=== PATIENT | female | born 1945 | race Caucasian/White ===

== ENCOUNTER 2019-01-04 13:41 | Inpatient (IN) | payer OTHER ==
[~2019-01-04] VITALS: Ht 165.1 cm; Wt 103.9 kg
[2019-01-04 14:45] LABS: BASOPHILS ABSOLUTE AUTO 0.02 K/mm3 (0.00-0.23); BASOPHILS PERCENT AUTO 0 % (0-2); EOSINOPHILS ABSOLUTE AUTO 0.08 K/mm3 (0.00-0.68); EOSINOPHILS PERCENT AUTO 1 % (0-6); Hematocrit 43.4 % (33.0-51.0); Hemoglobin 14.4 g/dL (11.5-16.0); IMMATURE GRAN ABSOLUTE AUTO 0.01 K/mm3 (0.00-0.10); IMMATURE GRAN PERCENT AUTO 0 % (0-1); LYMPHOCYTES ABSOLUTE AUTO 2.36 K/mm3 (0.84-5.20); LYMPHOCYTES PERCENT AUTO 33 % (21-46); MONOCYTES ABSOLUTE AUTO 0.49 K/mm3 (0.16-1.47); MONOCYTES PERCENT AUTO 7 % (4-13); Mean Corpuscular HGB 31.3 pg (26.0-34.0); Mean Corpuscular HGB Conc 33.2 g/dL (31.5-36.5); Mean Corpuscular Volume 94 fL (80-100); Mean Platelet Volume 10.8 fL (9.1-12.4); NEUTROPHILS ABSOLUTE AUTO 4.16 K/mm3 (1.96-9.15); NEUTROPHILS PERCENT AUTO 59 % (41-73); Platelet Count 225 K/mm3 (150-400); RDW Coefficient Variation 12.6 % (11.7-14.2); RDW Standard Deviation 43.4 fL (35.1-46.3); White Blood Cell Count 7.12 K/mm3 (4.00-11.30)
[2019-01-04 15:10] LABS: Alanine Aminotransfer (ALT/SGP 37 U/L (12-78); Albumin, Blood 3.8 g/dL (3.4-5.0); Alk Phos 84 U/L (50-136); Anion Gap 8 mmol/L (6-16); Aspartate Aminotrans (AST/SGOT 24 U/L (12-37); Bilirubin, Total 0.4 mg/dL (0.1-1.0); Blood Urea Nitrogen 14 mg/dL (8-24); Bun/Creatinine Ratio 16.1 (12.0-20.0); CO2, Blood 26 mmol/L (21-32); Calcium, Blood 8.9 mg/dL (8.5-10.1); Chloride, Blood 107 mmol/L (98-108); Creatinine, Blood 0.87 mg/dL (0.40-1.00); Globulin, Blood 3.9 g/dL (2.2-4.0); Glomerular Filtration Rate >60 (60-); Glucose, Blood 110 mg/dL (70-99); Potassium, Blood 3.5 mmol/L (3.5-5.5); Sodium, Blood 141 mmol/L (136-145); Total Protein, Blood 7.7 g/dL (6.4-8.2); Troponin I 0.085 ng/mL (0.000-0.040)
--- NOTE | 2019-01-04 19:07 | NUR ---
PT ADMITTED AT 1730. PT PLEASANT TALKATIAVE. INDEPENDANT IN ROOM. AMBULATED TO/FROM BATHROOM WELL. NO ASSISTANCE NEEDED. IN ROOM. PT DENIES PAIN AT THIS TIME. ADMIT DONE. PT ADVISED ABOUT STRESS TESTS TOMORROW . NO CAFFEINE PRODUCTS. NPO MIDNITE. DINNER ORDERED. NO OTHER CONCERNS AT THIS TIME. BED IN LOW POSITION, CALL LITE IN REACH, CALLS APPROP
--- NOTE | 2019-01-05 05:53 | NUR ---
SHIFT SUMMARY PT A&O X4. INDEPENDENT IN ROOM. VSS. PT REPORTED DULL, 1/10 CP AT BEGINNING OF SHIFT. PT DENYING PAIN T/O REMAINDER OF SHIFT. PT NPO SINCE MIDNIGHT FOR POTENTIAL STRESS TEST IN AM. WILL CONTINUE TO MONITOR AND PROVIDE CARE UNTIL REPORT OFF TO DAY SHIFT RN.
--- NOTE | 2019-01-05 07:30 | NUR ---
PT PLEASANT CHEERFUL. DENIES PAIN, PRESSURE OR TIGHTNESS IN CHEST. PENDING STRESS TEST THIS AM. NPO SINCE MIDNITE. H/R REG, NO MURMER NOTED. PER TELE: NSR AT 72, LUNGS CLEAR, RESP EASY, UNLABORED. ON R.A. BT X4 LAST BM YEST AM. VOIDS INDEPENDANT TO BATHROOM. BED IN LOW POSITION, CALL LITE IN REACH, CALLS APROP
--- NOTE | 2019-01-05 17:02 | NUR ---
PT QUITE PLEASANT TODAY. DENIES PAIN. HAS HAD FAMILY IN ROOM MUCH OF DAY. PART ONE OF STRESS TESST DONE TODAY. EXPECTING PART TWO TOMORROW 8830. HOLD TRAY FOR BREAKFAST AND GIVE AFTER TEST. NPO MIDNITE. NO OTEHR CONCERNS AT THIS TIME. BED IN LOW POSITION,C ALL LITE IN REACH, INDEPENDANT IN ROOM.
--- NOTE | 2019-01-06 07:35 | NUR ---
SHIFT SUMMARY PT A&O X4 T/O SHIFT. PT DENIES PAIN, SOB, CP AND NAUSEA T/O SHIFT. RA, LS CLEAR BILAT; VSS; NO ACUTE CHANGES. TELEMETRY IN PLACE; SR WITH PAC'S PER SENIOR ASSISTANT MANAGER. NPO POST MIDNIGHT; NO CAFFINE. CALL LIGHT IN REACH; PT DEMONSTRATES USE. REPORT GIVEN TO DAY SHIFT RN.
[2019-01-06 14:10] LABS: CHOL/HDL RATIO 5.3; Cholesterol 201 mg/dL (50-200); HDL Cholesterol 38 mg/dL (>39); LDL/HDL RATIO 3.1; Low Density Lipoprotein Chol 116 mg/dL (0-110); Triglycerides 233 mg/dL (30-160); Very Low Density Lipoprot Chol 46 mg/dL (6-32)
--- NOTE | 2019-01-06 17:59 | NUR ---
PT HAS DECIDED TO REMAIN IN HOSPITAL AND HAVE AN ANGIOGRAM TOMORROW. DR. HERNANDEZ AWARE. PAGE OUT TO DR. GEE.
--- NOTE | 2019-01-06 18:00 | NUR ---
SHIFT SUMMARY COMPLETED STRESS TEST THIS A.M.; DENIES ANY CP, SOB, NAUSEA OR ANY OTHER SYMPTOMS OR PAIN. FAMILY AT BEDSIDE THROUGHOUT DAY. ECHO AND ADDITIONAL LABS COMPLETED ORDERED BY DR. GEE. PLAN IS TO HAVE AN ANGIOGRAM IN A.M.; OX4 INDEPENDENT IN ROOM.
--- NOTE | 2019-01-06 18:11 | NUR ---
MED REC PLACED ON CHART IN CABINET.
--- NOTE | 2019-01-06 19:15 | NUR ---
OPENING NOTE RECEIVED REPORT FROM VAL BUNCH AND ASSUMED CARE OF PT. PT IS SITTING UP IN BED, VISITING WITH GUESTS AT THE BEDSIDE. DENIES PAIN/CP/SOB AT THIS TIME. STATES "I'M FEELING GOOD TODAY, READY TO GET MY TEST DONE IN THE MORNING". PLAN FOR ANGIO IN THE AM. WILL CONTINUE TO MONITOR AND CONTINUE PLAN OF CARE. VSS, SEE ASSESSMENT FOR DETAILS. CALL LIGHT AND BELIONGINGS IN REACH.
--- NOTE | 2019-01-07 06:17 | NUR ---
SHIFT SUMMARY: PATIENT NPO SINCE 0000, INDEPENDENT IN THE ROOM, USING CALL LIGHT APPROPRIATLY. VSS, NO ISSUES NOTED, BED LOW AND LOCKED, CALL LIGHT WITHIN REACH.
--- NOTE | 2019-01-07 09:38 | NUR ---
PT TAKEN TO [facility] FOR [facility]GIO[facility]. WILL AWAIT RETURN
--- NOTE | 2019-01-07 11:20 | NUR ---
update: Pt returned to room PCU 13 post angiogram. R radial site with TR band intact. Denies numbness or tingling. Cap refil < 3sec, no bleeding, oozing, swelling or hematoma noted. Wrist imobilizer in place. Pt states that she is having 2-3/10 chest pressure/discomfort, that it feels like something is stuck in her throat. Will monitor and inform physician. BP slightly elevated, see VS flow sheet. Pt denies other needs. Will monitor.
--- NOTE | 2019-01-07 12:01 | NUR ---
UPDATE: Pt started to have 8/10 chest pressure the went up "into my throat". Appeared to have some ST changes on Monitor. Physician notified and came to see pt. New orders obtained and followed through. Pt has nausea with dry heaves. EKG done, nitro, labatolol, zofran and versed given. Pt states that pressure has subsided, down to 4/10. Will continue to treat and monitor per orders and needs.
--- NOTE | 2019-01-07 12:20 | NUR ---
PT STATES HER CHEST PAIN IS RELIEVED. BP HAS IMPROVED SEE VS. WILL CONTINUE TO MONITOR CLOSELY.
--- NOTE | 2019-01-07 14:40 | NUR ---
BP INCREASED SEE VS. PT COMPLAINS OF 5/10 CHEST PAIN. SL NITRO GIVEN. BP IMPROVED. 2CC OF AIR REMOVED. SITE STARTS BLEEDING AND 2 CC OF AIR INSERTED BACK INTO TR BAND. BLEEDING STOPPED WITH NO SIGNS OF HEMATOMA FORMATION OR BRUISING. WILL CONTINUE TO MONITOR CLOSELY.
--- NOTE | 2019-01-07 14:50 | NUR ---
BP INCREASING. DR. HERMOSILLO CALLED WITH NEW ORDERS FOR ORAL LISINOPRIL. MEDICATION ADMINISTERED. BP 197/100. PT COMPLAINS OF CP. SL NITRO GIVEN. PT STATES CP IS NOW 3/10. BP HAS IMPROVED. WILL CONTINUE TO MONITOR CLOSELY.
--- NOTE | 2019-01-07 15:41 | NUR ---
UPDATE: Pt resting in bed. States that she is still having 5/10 pressure in her chest. Medicated with 1 tab SL nitro. This brought pain down to a 2/10. 2cc air removed from R Radial TR band. No bleeding, swelling, bruising or hematoma noted. Will continue to monitor.
--- NOTE | 2019-01-07 16:00 | NUR ---
ATTEMPTED TO REMOVE 2CC OF AIR FROM TR BAND. ACCESS SITE STARTED TO BLEED AND 2CC OF AIR INSERTED BACK INTO TR BAND. BLEEDING HAS STOPPED. WILL ATTEMPT TO REMOVE AIR IN APPROXIMATELY 30 MIN.
--- NOTE | 2019-01-07 17:00 | NUR ---
BP HAS INCREASED AGIAN. DR. GEE AND NOTIFIED ABOUT BP. NEW ORDERS PROVIDED. RIGHT RADIAL SITE FREE FROM BRUISING OR HEMATOMA. SMALL AMOUNT OF BLOOD PRESENT AT ACCESS SITE IS UNCHAGED. WILL CONTINUE TO MONITOR.
--- NOTE | 2019-01-07 18:15 | NUR ---
HYDRALAZINE GIVEN AND BP HAS IMPROVED. PT DENIES ANY CP AT THIS TIME. AT THIS TIME 11CC OF AIR HAVE BEEN REMOVED FROM TR BAND AND SITE IS UNCHANGED. NO SIGNS OF HEMATOMA, BRUISING OR BLEEDING. SMALL AMOUNT OF BLOOD IS UNCHAGED.
--- NOTE | 2019-01-07 18:35 | NUR ---
TOTAL OF 13CC OF AIR REMOVED FROM TR BAND. NO BLEEDING, HEMATOMA, OR BRUISING NOTED. PT DENIES CP. HR SR WITH A RATE IN THE 60'S AT THIS TIME. PT EDUCATED ABOUT ARM RESTRICTIONS. WILL REMOVE TR BAND IN APPROXIMATELY ONE HOUR. WILL CONTINUE TO MONITOR AND REPORT TO [employer] WRAPPER TENDER AUTOMATIC RN.
--- NOTE | 2019-01-07 22:07 | NUR ---
Assumed care of pt at approx 1930. At time of shift change, pt VSS with some noted hypertension, metoprolol given per orders. pt denies chest pain or chest pressure at this time. TR band completed deflated by JULIO C Rutherford at 1835, no s/sx of bleeding or hematoma. Pt denies any further needs at this time, states "I just want to sleep". pt denies nausea. No further events on tele, pt remains NSR. Pt alert and oriented. Pt independant, instructed to call before getting up d/t blood pressure shifts noted on day shift. Pt states understanding and has been calling appropriately. Call light in reach and bed in lowest, locked position. Pt currently sleeping. Pt is able to reposition self to comfort and makes needs known. See shift assessment for detailed assessment. Will continue to monitor and update as appropriate.
[2019-01-08 04:55] LABS: BASOPHILS ABSOLUTE AUTO 0.02 K/mm3 (0.00-0.23); BASOPHILS PERCENT AUTO 0 % (0-2); EOSINOPHILS ABSOLUTE AUTO 0.06 K/mm3 (0.00-0.68); EOSINOPHILS PERCENT AUTO 1 % (0-6); Hematocrit 43.5 % (33.0-51.0); Hemoglobin 14.2 g/dL (11.5-16.0); IMMATURE GRAN ABSOLUTE AUTO 0.01 K/mm3 (0.00-0.10); IMMATURE GRAN PERCENT AUTO 0 % (0-1); LYMPHOCYTES ABSOLUTE AUTO 2.21 K/mm3 (0.84-5.20); LYMPHOCYTES PERCENT AUTO 24 % (21-46); MONOCYTES ABSOLUTE AUTO 0.71 K/mm3 (0.16-1.47); MONOCYTES PERCENT AUTO 8 % (4-13); Mean Corpuscular HGB 31.1 pg (26.0-34.0); Mean Corpuscular HGB Conc 32.6 g/dL (31.5-36.5); Mean Corpuscular Volume 95 fL (80-100); Mean Platelet Volume 10.6 fL (9.1-12.4); NEUTROPHILS ABSOLUTE AUTO 6.27 K/mm3 (1.96-9.15); NEUTROPHILS PERCENT AUTO 68 % (41-73); Platelet Count 248 K/mm3 (150-400); RDW Coefficient Variation 13.1 % (11.7-14.2); RDW Standard Deviation 45.7 fL (35.1-46.3); Red Blood Cell Count 4.57 M/mm3 (3.80-5.20); White Blood Cell Count 9.28 K/mm3 (4.00-11.30)
--- NOTE | 2019-01-08 05:12 | NUR ---
Shift Summary No acute changes this shift. Pt initially hypertensive at shift change, recieved metorprolol per scheduled medication from [facility] and BP responded with normotensive readings at both 0000 and 0400. Pt without complaints this shift, calls appropriately, is independant in room, walks with steady gait. Pt remains A&Ox4. VSS. EKG performed at 0500 showing sinus bradycardia. no events on tele this shift. Will continue to monitor and update as needed.
[2019-01-08 05:35] LABS: Anion Gap 7 mmol/L (6-16); Blood Urea Nitrogen 24 mg/dL (8-24); Bun/Creatinine Ratio 26.2 (12.0-20.0); CO2, Blood 26 mmol/L (21-32); Calcium, Blood 9.1 mg/dL (8.5-10.1); Chloride, Blood 107 mmol/L (98-108); Creatinine, Blood 0.92 mg/dL (0.40-1.00); Glomerular Filtration Rate >60 (60-); Glucose, Blood 115 mg/dL (70-99); Potassium, Blood 4.1 mmol/L (3.5-5.5); Sodium, Blood 140 mmol/L (136-145)
--- NOTE | 2019-01-08 09:30 | NUR ---
PT AMBULATED IN HALLWAY THIS AM WITH RN AND DENIED CHEST PAIN OR SHORTNESS OF BREATH AFTER AMBULATION. RIGHT WRIST SOFT, NO BLEED OR HEMATOMA, OPSITE DRSG CDI. ARM BOARD IN PLACE.
[2019-01-08] MEDS ORDERED: ACET325 PO (13:22)
[2019-01-08] MEDS ORDERED: ASPI81CH PO (13:26)
[2019-01-08] MEDS ORDERED: ROSU10TA PO (13:28)
[2019-01-08] MEDS ORDERED: CLOP75 PO (13:31)
[2019-01-08] MEDS ORDERED: FAMO20 PO (13:32)
[2019-01-08] MEDS ORDERED: Hydrochloroth12.5 MG PO (13:36)
[2019-01-08] MEDS ORDERED: Prinivil10 MG PO (13:50)
[2019-01-08] MEDS ORDERED: METO50ER PO (13:51)
[2019-01-08] MEDS ORDERED: Nitrostat0.4 MG SL (13:53)
--- NOTE | 2019-01-08 16:00 | NUR ---
DISCHARGE NOTE PT STABLE FOR DISCHARGE. IV REMOVED. DISCHARGE MEDICATIONS, DISCHARGE INSTRUCTIONS, DISCHARGE MEDICATION EDUCATION, [employer] CONTRACT, AND RADIAL ACCESS INSTRUCTIONS REVIEWED WITH PT AND . PT AND VERBALIZE UNDERSTANDING AND DENY QUESTIONS. PT DISCHARGED VIA WHEELCHAIR TO WAITING CAR WITH INSTRUCTIONS AND BELONGINGS.
== END 2019-01-08 16:06 | disposition home or self-care (01) | DRG 247 ==
LOC: ER 13:41 → PCU 13:42
PROVIDERS: Internal Medicine Cardiovascular Disease; Physician Assistant; ADMIT Internal Medicine
PROC: 4A023N7 Measurement of Cardiac Sampling and Pressure, Left Heart, Percutaneous Approach (ICD-10-PCS; principal; 2019-01-07)
PROC: 027135Z Dilation of Coronary Artery, Two Arteries with Two Drug-eluting Intraluminal Devices, Percutaneous Approach (ICD-10-PCS; 2019-01-07)
PROC: B211YZZ Fluoroscopy of Multiple Coronary Arteries using Other Contrast (ICD-10-PCS; 2019-01-07)
DX: I21.4 Non-ST elevation (NSTEMI) myocardial infarction (principal); I16.0 Hypertensive urgency; I10 Essential (primary) hypertension; I25.119 Atherosclerotic heart disease of native coronary artery with unspecified angina pectoris; E78.5 Hyperlipidemia, unspecified; Z68.38 Body mass index [BMI] 38.0-38.9, adult; I25.2 Old myocardial infarction; Z87.891 Personal history of nicotine dependence
CPT/HCPCS: 36415; 71046; 78452; 80048; 80053; 80061; 84443; 84484; 85025; 85347; 92920; 92921; 92978; 92979; 93005; 93010; 93017; 93306; 93458; 96372; 96374; 99152; 99153; 99285-25; A9500; C1725; C1753; C1769; C1874; C1887; C1894; C9600; C9601; G0378; J0360; J0706; J1644; J1650; J2250; J2405; J2785; J3010; J7030; Q9967

== ENCOUNTER 2020-09-26 15:16 | Emergency (ER) | payer OTHER ==
[~2020-09-26] VITALS: Ht 165.1 cm; Wt 87.1 kg
[~2020-09-26 15:16] MED LIST: ACET325 PO; ASPI81CH PO; CLOP75 PO; FAMO20 PO; Hydrochloroth12.5 MG PO; METO50ER PO; Nitrostat0.4 MG SL; Prinivil10 MG PO; ROSU10TA PO
[2020-09-26] MEDS ORDERED: AMLODIPINE BESYL5 MG PO (15:32)
[2020-09-26 15:58] LABS: BASOPHILS ABSOLUTE AUTO 0.02 K/mm3 (0.00-0.23); BASOPHILS PERCENT AUTO 0 % (0-2); EOSINOPHILS PERCENT AUTO 1 % (0-6); Hematocrit 40.9 % (33.0-51.0); Hemoglobin 13.2 g/dL (11.5-16.0); IMMATURE GRAN ABSOLUTE AUTO 0.01 K/mm3 (0.00-0.10); IMMATURE GRAN PERCENT AUTO 0 % (0-1); LYMPHOCYTES ABSOLUTE AUTO 2.09 K/mm3 (0.84-5.20); LYMPHOCYTES PERCENT AUTO 29 % (21-46); MONOCYTES ABSOLUTE AUTO 0.48 K/mm3 (0.16-1.47); MONOCYTES PERCENT AUTO 7 % (4-13); Mean Corpuscular HGB 30.4 pg (26.0-34.0); Mean Corpuscular HGB Conc 32.3 g/dL (31.5-36.5); Mean Corpuscular Volume 94 fL (80-100); Mean Platelet Volume 10.9 fL (9.1-12.4); NEUTROPHILS ABSOLUTE AUTO 4.42 K/mm3 (1.96-9.15); NEUTROPHILS PERCENT AUTO 62 % (41-73); Platelet Count 208 K/mm3 (150-400); Red Blood Cell Count 4.34 M/mm3 (3.80-5.20); White Blood Cell Count 7.12 K/mm3 (4.00-11.30)
[2020-09-26 16:22] LABS: Alanine Aminotransfer (ALT/SGP 25 U/L (12-78); Albumin, Blood 3.9 g/dL (3.4-5.0); Alk Phos 84 U/L (50-136); Anion Gap 6 mmol/L (6-16); Aspartate Aminotrans (AST/SGOT 39 U/L (12-37); Blood Urea Nitrogen 26 mg/dL (8-24); CO2, Blood 27 mmol/L (21-32); Calcium, Blood 9.3 mg/dL (8.5-10.1); Chloride, Blood 107 mmol/L (98-108); Creatinine, Blood 0.96 mg/dL (0.40-1.00); Globulin, Blood 3.8 g/dL (2.2-4.0); Glomerular Filtration Rate >60 (60-); Glucose, Blood 104 mg/dL (70-99); Potassium, Blood 3.7 mmol/L (3.5-5.5); Sodium, Blood 140 mmol/L (136-145); Total Protein, Blood 7.7 g/dL (6.4-8.2); Troponin I <0.015 ng/mL (0.000-0.040)
== END 2020-09-26 18:18 | disposition home or self-care (01) ==
LOC: ER 15:16
PROVIDERS: Student in an Organized Health Care Education/Training Program
DX: I20.9 Angina pectoris, unspecified (principal); I25.2 Old myocardial infarction; Z79.82 Long term (current) use of aspirin; Z79.02 Long term (current) use of antithrombotics/antiplatelets; Z79.899 Other long term (current) drug therapy; Z87.891 Personal history of nicotine dependence; Z95.5 Presence of coronary angioplasty implant and graft
CPT/HCPCS: 36415; 71046; 80053; 84484; 85025; 93005; 93010; 99284-25

== ENCOUNTER → 2021-06-23 | Outpatient (CLI) | payer OTHER ==
[~2021-06-23] MED LIST changes: +AMLODIPINE BESYL5 MG PO
[2021-06-23 14:49] LABS: Source, Urine Clean Catch
[2021-06-23 15:24] LABS: Appearance, Urine Clear (Clear); Bilirubin, Urine Neg (Neg); Blood, Urine 1+ (Neg); Color, Urine Yellow (P-Yellow); Glucose Qualitative, Urine Neg (Normal); Ketones, Urine Neg (Neg); Leukocyte Esterase, Urine 1+ (Neg); Nitrite, Urine Neg (Neg); Protein, Urine Neg (Neg); Specific Gravity, Urine 1.015 (1.003-1.022); Urobilinogen, Urine NORM (Normal)
[2021-06-23 15:25] LABS: Bacteria Few /hpf; Red Blood Cells, Urine 0-2 /hpf (0-2); Squamous Epithelial Cells Mod /hpf (Few)
== END | disposition home or self-care (01) ==
LOC: LAB SHORT 14:46 → LAB 14:46
PROVIDERS: Family Medicine
DX: R32 Unspecified urinary incontinence (principal)
CPT/HCPCS: 81001; 87086

== ENCOUNTER → 2025-07-02 | Outpatient (CLI) | payer OTHER | LOC: LAB SHORT 13:45 → LAB 13:45 | DX: N39.0 Urinary tract infection, site not specified (principal) | CPT/HCPCS: 87086 ==